=== PATIENT | female | born 1965 | race African-American/Black ===

== ENCOUNTER 2017-04-14 13:49 | Emergency (ER) | payer SELFPAY ==
--- NOTE | 2017-04-14 13:54 | ED Physician Documentation ---
General Adult - HISTORIAN Historian: patient <Monique Paiz - Last Filed: 04/14/17 13:54> - HPI Chief Complaint: Lower Extremity Problem Onset: other (has had chronic problems for years) Timing: worse Severity: moderate Further Comments: yes - ROS CONST: denies: fever, chills - PAST HX Past History: hypertension, other (? RA, migraine headaches, chronic OA, disc disease to lumbar, torn rotator cuff, ) Immunizations: referred to PCP - SOCIAL HX Smoking History: less than 1 pack/day (1/2 ppd) Alcohol Use: occasionally Drug Use: none - FAMILY HX Family History: No - VITAL SIGNS Vital Signs: Vital Signs Temp Pulse Resp BP Pulse Ox 98.1 F 91 H 20 134/88 99 04/14/17 13:50 04/14/17 13:50 04/14/17 13:50 04/14/17 13:50 04/14/17 13:50 - REVIEWED ASSESSMENTS Nursing Assessment Reviewed: Yes Vitals Reviewed: Yes <Chidi Landers - Last Filed: 04/14/17 16:42> - PAST HX Allergies/Adverse Reactions: Allergies Allergy/AdvReac Type Severity Reaction Status Date / Time No Known Allergies Allergy Verified 04/14/17 14:24 Home Medications: Ambulatory Orders Medication Instructions Recorded Cyclobenzaprine HCl 10 mg PO TID PRN 04/14/17 DULoxetine HCL [Cymbalta] 60 mg PO HS #30 capsule. 04/14/17 Diclofenac Sodium [Solaraze] 2 gm TP TID PRN 04/14/17 Duloxetine HCl [Cymbalta] 60 mg PO D 04/14/17 Gabapentin 300 mg PO TID #90 capsule 04/14/17 Gabapentin [Neurontin] 300 mg PO TID 04/14/17 HYDROcodone /APAP 10325 [[place] 1 each PO BID PRN 04/14/17 10325] Meloxicam [Mobic] 15 mg PO D 04/14/17 Naproxen [Naprosyn] 500 mg PO BID PRN #30 tablet 04/14/17 Sumatriptan Succinate [Imitrex] 100 mg PO DIRECTED PRN 04/14/17 Tramadol HCl [Ultram] 50 mg PO Q6 PRN 04/14/17 Tramadol HCl [Ultram] 50 mg PO Q6 PRN #20 tablet 04/14/17 amLODIPine BESYLATE [Norvasc] 10 mg PO 0900 04/14/17 amLODIPine BESYLATE [Norvasc] 10 mg PO 0900 #60 tablet 04/14/17 Progress - EKG/XRAY/CT XRAY: knee <Chidi Landers - Last Filed: 04/14/17 16:42> ED Results Lab/Radiology - Radiology Radiology Impressions: Examination: Plain film knee History: Knee discomfort Findings: 3 views of the knee demonstrates normal cortical margins. No fracture. No dislocation. Small joint effusion. No soft tissue irregularity. Impression: Small joint effusion. No acute osseous abnormality. - Orders Orders: ED Orders Category Date Time Status KNEE 3 VIEWS [RAD] Stat Exams 04/14/17 Taken <Chidi Landers - Last Filed: 04/14/17 16:42> General Adult Physical Exam - PHYSICAL EXAM GENERAL APPEARANCE: mild distress NECK: thyroid normal, supple RESPIRATORY: no resp distress, chest non-tender, breath sounds normal. No: wheezes, rales, rhonchi CVS: reg rate & rhythm, heart sounds normal, equal pulses ABDOMEN: soft, no organomegaly, normal bowel sounds, no abdominal bruit, no distension BACK: other (mild low lumbar tenderness) EXTREMITIES: other (tenderness to the lateral anterior aspect fo the right knee. mild joint effusion, mild crepitus with movement. No warmth noted. ) NEURO: oriented X3, CN's nml as tested, motor nml, sensation nml, mood/affect nml <Chidi Landers - Last Filed: 04/14/17 16:42> Discharge <Monique Paiz - Last Filed: 04/14/17 13:54> Decision to Admit: NO Date of Decison to Admit: 04/14/17 Decision Time: 16:02 <Chidi Landers - Last Filed: 04/14/17 16:42> Clincal Impression: Osteoarthritis of right knee Referrals: Primary Doctor,No [Primary Care Provider] - 2 Days Additional Instructions: Take Naprosyn 500mg with food twice a day. Take Tramadol 50mg one tablet with food as needed for severe pain. Use a warm compress to the knee area. Follow-up with a primary care provider for further evaluation and workup of your medical problems. Condition: Stable Disposition: 01 HOME, SELF-CARE
[2017-04-14] MEDS ORDERED: KETOROLAC TROMETHAMINE 60 MG/2 ML VIAL IM ONE (15:10)
--- NOTE | 2017-04-14 15:51 | Diagnostic Imaging Report ---
KATHRYN JAMISON [facility] [address] [facility] [address] [address] Report Submission Date: Apr 14, 2017 2:49:34 PM CDT Patient Study Name: MONICA CHAMPION Date: Apr 14, 2017 2:36:19 PM CDT Modality Type: CR Gender: F Description: LOWER EXTREMITY : 61 Institution: [facility] Physician: KATHRYN JAMISON Examination: Plain film knee History: Knee discomfort Findings: 3 views of the knee demonstrates normal cortical margins. No fracture. No dislocation. Small joint effusion. No soft tissue irregularity. Impression: Small joint effusion. No acute osseous abnormality. Electronically signed on Apr 14, 2017 2:49:34 PM CDT by: Chip MONTERO
[2017-04-14 16:01] LABS: MEAN CORPUSCULAR HEMOGLOBIN 29.7 pg (28.0-34.0); MEAN CORPUSCULAR VOLUME 93.9 fl (80.0-100.0)
[2017-04-14 16:02] LABS: EOSINOPHILS % 1.7 % (0.0-6.8); MONOCYTES % 4.5 % (0.0-11.0)
[2017-04-14 16:03] LABS: BASOPHILS % 0.6 (0.0-1.5); NEUTROPHILS # 3.1 # k/uL (1.4-7.7)
[2017-04-14 16:06] LABS: eGFR (African) > 60; eGFR (Non-African) > 60
[2017-04-14 16:25] VITALS: BP 139/76
== END 2017-04-14 16:45 | disposition home or self-care (01) ==
LOC: ED 13:49
DX: M17.11 Unilateral primary osteoarthritis, right knee (principal)
CPT/HCPCS: 73562; 80053; 85025; J1885; 96372; 99283

== ENCOUNTER 2017-06-09 16:28 | Emergency (ER) | payer SELFPAY ==
--- NOTE | 2017-06-09 16:50 | ED Physician Documentation ---
Sore Throat/Dental Pain - HISTORIAN Historian: patient - HPI Chief Complaint: Sore Throat Additional Information: [address], has been around other people that have been ill.No fever noted, haivng some mild chills. No cough or nasal drainage noted. Onset: days ago (2 days) Associated Symptoms: sore throat. denies: fever, chills Further Comments: no - ROS CONST: no problems - PAST HX Past History: other (HTN ,OA) Other History: other (depression) Allergies/Adverse Reactions: Allergies Allergy/AdvReac Type Severity Reaction Status Date / Time No Known Allergies Allergy Verified 06/09/17 16:51 Home Medications: Ambulatory Orders Medication Instructions Recorded Cyclobenzaprine HCl 10 mg PO TID PRN 04/14/17 DULoxetine HCL [Cymbalta] 60 mg PO HS #30 capsule. 04/14/17 Diclofenac Sodium [Solaraze] 2 gm TP TID PRN 04/14/17 Duloxetine HCl [Cymbalta] 60 mg PO D 04/14/17 Gabapentin 300 mg PO TID #90 capsule 04/14/17 Gabapentin [Neurontin] 300 mg PO TID 04/14/17 HYDROcodone /APAP 10325 [[place] 1 each PO BID PRN 04/14/17 10325] Meloxicam [Mobic] 15 mg PO D 04/14/17 Naproxen [Naprosyn] 500 mg PO BID PRN #30 tablet 04/14/17 Sumatriptan Succinate [Imitrex] 100 mg PO DIRECTED PRN 04/14/17 Tramadol HCl [Ultram] 50 mg PO Q6 PRN 04/14/17 Tramadol HCl [Ultram] 50 mg PO Q6 PRN #20 tablet 04/14/17 amLODIPine BESYLATE [Norvasc] 10 mg PO 0900 04/14/17 amLODIPine BESYLATE [Norvasc] 10 mg PO 0900 #60 tablet 04/14/17 - SOCIAL HX Smoking History: less than 1 pack/day (1/2 ppd) Alcohol Use: rarely Drug Use: none - FAMILY HX Family History: No - VITAL SIGNS Vital Signs: Vital Signs Temp Pulse Resp BP Pulse Ox 98.4 F 94 H 20 145/88 98 06/09/17 16:28 06/09/17 16:28 06/09/17 16:28 06/09/17 16:28 06/09/17 16:28 - REVIEWED ASSESSMENTS Nursing Assessment Reviewed: Yes Vitals Reviewed: Yes Sore throat Physical Exam - EXAM General Appearance: alert, mild distress Head/Neck: head nml inspection, trachea midline, no lymphadenopathy, thyroid nml Eyes: eyes nml inspection Mouth/Throat: lips nml, gums nml, voice nml, no drooling, no air way problems, pharyngeal erythema. No: tonsillar exudate Ear/Nose: nml inspection Respiratory: no resp. distress, breath sounds nml. No: respiratory distress, wheezes, rales, rhonchi CVS: reg. rate & rhythm, heart sounds nml Abdomen: soft, no organomegaly, normal bowel sounds Skin: warm/dry, other (no rash) Neuro/Psych: oriented x3, mood/affect nml Discharge Clincal Impression: Viral pharyngitis Referrals: Primary Doctor,No [Primary Care Provider] - 2 Days Additional Instructions: Gargle with salt water, use hard rock candy, chloraspetic spray or ice chips to help soothe throat, drink a lot of fluids. Condition: Stable Disposition: 01 HOME, SELF-CARE Decision to Admit: NO Date of Decison to Admit: 06/09/17 Decision Time: 16:58
[2017-06-09 16:51] VITALS: BP 145/88
== END 2017-06-09 17:04 | disposition home or self-care (01) ==
LOC: ED 16:28
DX: J02.9 Acute pharyngitis, unspecified (principal)
CPT/HCPCS: 87070; 87880; 99283

== ENCOUNTER 2017-09-04 13:52 | Outpatient (CLI) | payer OTHER ==
--- NOTE | 2017-09-09 14:21 | CONSULTATION REPORT ---
REFERRING PHYSICIAN: Dr. Chidi Landers CONSULTING PHYSICIAN: Tony Arzate MD Dear Dr. Landers: HISTORY OF PRESENT ILLNESS: Thank you for your consultation request regarding Kristi Smith. This is a 52- year-old black woman who is complaining of bilateral knee and hand pain and there is a concern for possible rheumatoid arthritis. She tells me her brother has rheumatoid arthritis. Her pain has been present for many years but her hands are rather a new development. For the past couple of months, she has had a gradual onset of painful stiffness and swelling of the hands, as well as discomfort and swelling of her right knee. Prior to this, she was seen at [facility] of Orth[facility] and had a diagnosis of primary osteoarthritis of the knees bilaterally, as well as osteoarthritis of her spine with radicular symptoms. She got injections in both her knees and her lumbar spine. From her records, I see that the last MRI of the lumbar spine was in 2016, as well as x-rays of her hips. She does have joint pain, swelling, and morning stiffness lasting over an hour. ALLERGIES: She has no known drug allergies. PRESENT MEDICATIONS: 1. Amlodipine 10 mg daily. 2. Flexeril 10 mg daily. 3. Cymbalta 60 mg daily. 4. Gabapentin 300 mg. 5. Hydrocodone. 6. Meloxicam. 7. Tramadol. PAST MEDICAL HISTORY: Hypertension. REVIEW OF SYSTEMS: Rest of systems reviewed, no change in her weight. No fatigue, weakness, or fevers. No red painful eyes. No dry mouth or difficulty swallowing. No chest pain, shortness of breath, cough, or wheezing. No nausea, vomiting, or diarrhea. No dark stools or bloody stools. She does have heartburn. No skin rashes, hives, photosensitivity, color changes in her hands and feet in the cold. She does have headaches and hands sensitivity. Some issues with depression. No swollen or tender lymph nodes. PHYSICAL EXAMINATION: Vital Signs: She is 5 feet 10 inches. Weight: 187 pounds. T: 96.8, R: 20, heart rate 87, BP: 139/78. HEENT: Sclerae are anicteric. Conjunctivae are pink. No stomatitis or glossitis. LUNGS: Clear bilaterally with no crackles or wheezing. HEART: Regular rhythm. ABDOMEN: Soft and nontender. VASCULAR: No edema or cyanosis. PERIPHERAL JOINTS: Tenderness but no overt synovitis at the PIPs and MCPs. No deformities. Wrists are unremarkable. Elbows and shoulders are unremarkable. Both knees are tender. The right knee has a small cool effusion with a mild flexion deformity. There is no instability. Ankles and MTPs are unremarkable. SENSORY EXAM: Decreased gross sensation of the lower feet. IMPRESSION: Concern for rheumatoid arthritis. PLAN: 1. You had ordered some labs and she has not done them as of yet. I will be doing those this coming week. 2. I will also x-ray her hands, wrists, and knees, as well as her feet. Thank you very much for the opportunity to participate in the care of your patients. Best regards, cc: Dr. Chidi MONTERO
== END 2017-09-04 14:00 ==
LOC: RHEU 13:52
PROVIDERS: ATTEND Internal Medicine
DX: M79.641 Pain in right hand (principal); M25.562 Pain in left knee; M25.561 Pain in right knee
CPT/HCPCS: 99213; 99214

== ENCOUNTER 2017-09-08 12:44 | Outpatient (CLI) | payer OTHER ==
[2017-09-08 15:02] LABS: BASOPHILS % 0.5 (0.0-1.5); EOSINOPHILS % 1.7 % (0.0-6.8); MEAN CORPUSCULAR HEMOGLOBIN 30.7 pg (28.0-34.0); MEAN CORPUSCULAR VOLUME 94.3 fl (80.0-100.0); MONOCYTES % 3.5 % (0.0-11.0); NEUTROPHILS # 3.7 # k/uL (1.4-7.7)
[2017-09-08 15:08] LABS: eGFR (African) > 60; eGFR (Non-African) > 60
--- NOTE | 2017-09-11 11:15 | HISTORY AND PHYSICAL REPORT ---
REFERRING PHYSICIAN: Dr. Chidi Landers Dear Dr. Landers: HISTORY OF PRESENT ILLNESS: I had the opportunity of seeing Kristi Smith today as an outpatient at [facility]. As you are aware, Kristi is a very nice 52-year-old female who presents today with multiple complaints of primarily joint pain, severe pain bilaterally in her hands and feet, tingling and numbness in her feet, low back pain, and knee pain. Of her multiple complaints, the knee pain appears to be most disabling, as she cannot walk. She cannot bend or flex her knees because of pain. She was seen by Dr. rAzate who felt that she may in fact have rheumatoid arthritis and lab work was ordered but not obtained. She had been previously seen at [facility] and they have given her multiple injections, including epidurals , shoulder joint injections, a shoulder arthroscopy, knee joint injections, and she is not sure if she has had much improvement with any form of injection therapy. As I look at her today, she is markedly uncomfortable. She has been taking very little in the way of oral analgesics and has had some type of delay in getting her insurance benefits for her usual medical management, which includes tramadol and hydrocodone. PAST MEDICAL HISTORY: 1. History of hypertension. 2. Bruising easily. 3. Depression. 4. Frequent headaches. 5. Chronic pain of multiple joints. PAST SURGICAL HISTORY: 1. Left rotator cuff repair. 2. Bilateral tubal ligation. 3. Hernia repair. CURRENT DAILY MEDICATIONS: 1. Sumatriptan 100 mg p.r.n. 2. Duloxetine 60 mg daily. 3. Amlodipine 10 mg daily. 4. Naproxen 500 mg p.r.n. 5. Calcium with D3, 800/600 daily. ALLERGIES: She has no known drug allergies. SOCIAL HISTORY: She is currently a [id number]-day smoker. Unknown alcohol use. Denies recreational drug use. Unknown marital status. She has 1 child. Her previous occupation was in Marketing. She is not currently employed. She is currently disabled for unknown reason. FAMILY HISTORY: Father with heart disease and diabetes. Pain problems related to arthritis. Brother with RA. REVIEW OF SYSTEMS: In the last month or so, she reports a hoarse voice, stomach pain or upset stomach, feeling depressed, feeling anxious, and headaches. Pain is worsened with lying, standing, bending, sitting, walking, twisting, getting up from a chair, changes in weather, cold, heat, stress, fatigue, driving, touch, and in any position for too long. Nothing improves her pain. PHYSICAL EXAMINATION: General: This is a thin female appearing in some distress. Vital Signs: BP: 154/80, P: 74, R: 22, oxygen saturation is 98% on room air. Extremities: There is minimal range in the upper and lower extremities both at the shoulder and completely at the knees. There is tenderness to hogshead hooper strength, particularly in the right hand, as opposed to the left. There is no evidence of dermatomal numbness or weakness in the upper extremities or lower extremities. There is a negative straight leg raise. There is swelling in both knees and a great deal of pain with flexion and extension. There is negative drawer signs. There is a positive assisted extension and extension rotation. Positive ALEJANDRA. Positive bursitis of the hips, low back, and shoulders. ASSESSMENT: 1. Polyarthropathy. 2. Polymyalgia. 3. Bilateral knee joint swelling and pain. 4. Possible spinal stenosis. PLAN: At this point, I am going to provide her with a prescription for Butrans 10 mcg patch 1 or 2 patches applied to the skin every 7 days and I will plan on placing bilateral knee joint injections. I would like to get the lab work drawn today that was ordered by Dr. Arazte so that she can get a sufficient rheumatologic workup, as I believe this nice lady likely does have an autoimmune disorder. Dr. Landers, thank you very much for allowing me to take part in the care of this nice lady. I appreciate the opportunity to take part in the care of your patients. cc: Dr. Chidi MONTERO
--- NOTE | 2017-10-01 15:53 | KNEE INJECTION WITH FLUORO ---
PREOPERATIVE DIAGNOSES: 1. Bilateral degenerative joint disease of the knees. 2. History of osteoarthritis of the knees. POSTOPERATIVE DIAGNOSES: 1. Bilateral degenerative joint disease of the knees. 2. History of osteoarthritis of the knees. PROCEDURE: Bilateral knee joint injection under fluoroscopy. DESCRIPTION OF PROCEDURE: Consent was obtained after risks were fully explained including bleeding, infection, and lack of improvement. The patient was positioned supine on the fluoroscopic procedure table with the knees slightly flexed. The right knee was prepared. AP and oblique fluoroscopic viewing was used for visualizing the knee joint. A spinal needle was advanced under fluoroscopic guidance into the right knee at the medial compartment. Omnipaque was injected and revealed an adequate spread within the right knee joint. Following this, the medication was subsequently injected. At this point, the needle was removed and a sterile dressing was applied. In this exact same fashion, the contralateral knee was then injected under fluoroscopic guidance. The patient tolerated the injections without complications. The patient was monitored for 20 minutes following the procedure. ASSESSMENT: 1. Bilateral degenerative joint disease of the knees. 2. History of osteoarthritis of the knees. PLAN: Bilateral knee joint injection under fluoroscopy. FOLLOW UP: Return to clinic if problems develop or worsen. KYLAH
== END 2017-09-08 12:45 ==
LOC: OUT 12:44
PROVIDERS: ATTEND Anesthesiology Pain Medicine
DX: M17.0 Bilateral primary osteoarthritis of knee (principal); M13.0 Polyarthritis, unspecified; M35.3 Polymyalgia rheumatica; I10 Essential (primary) hypertension; F17.210 Nicotine dependence, cigarettes, uncomplicated; Z79.899 Other long term (current) drug therapy
CPT/HCPCS: 20610; 36415; 80053; 84550; 85025; 85651; 86038; 86140; 86200; 86431; 99214; J3301; J3490; Q9966

== ENCOUNTER 2017-09-30 10:53 | Outpatient (CLI) | payer OTHER ==
--- NOTE | 2017-09-30 20:21 | Diagnostic Imaging Report ---
THIAGO MERA~ [facility] [address] [address] ~ ~ ~ ~ Report Submission Date: Sep 30, 2017 12:23:07 PM CDT Patient ~ Study Name: MONICA CHAMPION ~ Date: Sep 30, 2017 11:20:01 AM CDT ~ Modality Type: DX Gender: F ~ Description: UPPER EXTREMITY : 61 ~ Institution: [facility] Physician: THIAGO MERA ~ ~ ~ Examination: Plain film hands bilaterally History: PT COMPLAINS OF PAIN IN THE HANDS X 1 YEAR (Hx) Comparison exams: None available Findings: 3 views the right and left hands demonstrates generalized osteopenia. Articular degenerative changes. No fracture.~ No dislocation. No soft tissue abnormality. Impression: Osteopenia and degenerative changes. No acute osseous abnormality. ~ Electronically signed on Sep 30, 2017 12:23:07 PM CDT by: Chip MONTERO
--- NOTE | 2017-09-30 20:23 | Diagnostic Imaging Report ---
THIAGO MERA~ [facility] [address] [facility] [address] ~ ~ ~ ~ Report Submission Date: Sep 30, 2017 12:30:21 PM CDT Patient ~ Study Name: MONICA CHAMPION ~ Date: Sep 30, 2017 11:31:32 AM CDT ~ Modality Type: DX Gender: F ~ Description: LOWER EXTREMITY : 61 ~ Institution: [facility] Physician: THIAGO MERA ~ ~ ~ Examination: Plain film knees bilaterally History: PT COMPLAINS OF KNEE PAIN X 2 YEARS. (Hx) Findings:~2 views of the left and right knees demonstrates generalized osteopenia. Minimal tibial spine and patellar spurring. No fracture.~ No dislocation. No joint effusion. No soft tissue irregularity. Impression: Osteopenia and mild degenerative changes. No acute appearing osseous abnormality. ~ Electronically signed on Sep 30, 2017 12:30:21 PM CDT by: Chip MONTERO
--- NOTE | 2017-09-30 20:25 | Diagnostic Imaging Report ---
THIAGO MERA~ [facility] [address] [address] ~ ~ ~ ~ Report Submission Date: Sep 30, 2017 12:24:22 PM CDT Patient ~ Study Name: MONICA CHAMPION ~ Date: Sep 30, 2017 11:37:16 AM CDT ~ Modality Type: DX Gender: F ~ Description: LOWER EXTREMITY : 61 ~ Institution: [facility] Physician: THIAGO MERA ~ ~ ~ Examination: Plain film feet bilaterally History: PT COMPLAINS OF PAIN IN THE HANDS X 1 YEAR (Hx) Comparison exams: None available Findings: 3 views the right and left feet demonstrates generalized osteopenia. Articular degenerative changes. No fracture. ~No dislocation. Inferior calcaneal spurs. No soft tissue abnormality. Impression: Osteopenia and degenerative changes. No acute osseous abnormality. ~ Electronically signed on Sep 30, 2017 12:24:22 PM CDT by: Chip Moy History should read: PT COMPLAINS OF BILATERAL FOOT PAIN AND NUMBNESS X 1 YEAR. (Hx) Addendum electronically signed by Chip Moy on September 30, 2017 12:28:53 PM CDT MTDD
== END 2017-09-30 10:55 ==
LOC: RAD 10:53
PROVIDERS: ATTEND Internal Medicine
DX: M13.0 Polyarthritis, unspecified (principal); Z79.899 Other long term (current) drug therapy

== ENCOUNTER 2017-10-06 10:24 | Outpatient (CLI) | payer OTHER ==
--- NOTE | 2017-10-08 10:30 | PAIN CLINIC PROGRESS NOTES ---
REASON FOR VISIT: Ms. Smith follows up today. She said she had temporary benefit from the knee joint injections and that the pain is returning in the knees, her chief complaint, hands, wrists, and shoulders. She says she hurts all over. She went to see Dr. Arzate and had lab work and x-ray images were obtained. The significant lab results are positive for rheumatoid factor. Otherwise, there is osteopenia in the hands and feet and degenerative changes in the joints in each limb. ASSESSMENT: 1. Degenerative joint disease. 2. Polyarthropathy. 3. Polymyositis. 4. Possible rheumatoid arthritis. PLAN: At this point, I am going to restart Kristi on gabapentin 300 mg 3 times a day and provide her with Butrans 10 mcg to 20 mcg transdermal patches. I will have her see Dr. Arzate and he is scheduled to see her later this week. From an interventional standpoint, I think this patient would likely benefit from a more of a rheumatological approach than an interventional pain approach. cc: Dr. Chidi MONTERO
== END 2017-10-06 10:26 ==
LOC: OUT 10:24
PROVIDERS: ATTEND Anesthesiology Pain Medicine
DX: M19.90 Unspecified osteoarthritis, unspecified site (principal); M13.0 Polyarthritis, unspecified; M33.20 Polymyositis, organ involvement unspecified
CPT/HCPCS: 99213; 99214

== ENCOUNTER 2017-10-09 | Outpatient (CLI) | payer OTHER ==
--- NOTE | 2017-10-12 14:38 | OP Clinic Progress Note ---
Dear Dr. Landers and Dr. Ruiz: REASON FOR VISIT: I had the pleasure of seeing Kristi Smith on follow up. She continues to have significant pain in her neck, back, shoulder, hands, and her feet. She has not noted any new deformities. No other modalities are helping. She presently brings me a new medication list and PAST MEDICAL HISTORY: Hypertension. ALLERGIES: She has no drug allergies. PRESENT MEDICATIONS: 1. Imitrex. 2. Cymbalta. 3. Naprosyn. 4. Gabapentin. 5. Butrans. 6. Amlodipine. REVIEW OF SYSTEMS: She is still in pain. She is not sleeping well. She has difficulty with all activities of daily living including walking, grasping, and dressing, otherwise , no fevers, chills, sweats, chest pain, shortness of breath, cough, or wheezing. PHYSICAL EXAMINATION: VITAL SIGNS: Height: 5 feet 10 inches. Weight: 186. T: 96.6, R: 20, heart rate 80, BP: 126/71. HEENT: Sclerae are anicteric. Conjunctivae are pink. No stomatitis or glossitis. LUNGS: Clear bilaterally with no crackles or wheezing. HEART: Regular rate and rhythm. ABDOMEN: Soft and nontender. VASCULAR: No edema or cyanosis. PERIPHERAL JOINTS: Tenderness at the PIPs, MCPs, and wrists with decreased director digital advertising strength. Extremely tender at the shoulders with decreased range of motion. Both knees feel puffy but no definite effusion. Ankles and feet are tender. LABORATORIES: Her rheumatoid factor is positive at 92. Her sedimentation rate was 20. CRP was normal. CBC and CMP were normal. RADIOLOGY: I personally reviewed the x-rays of her knees, hands, and feet. The knees show some tibial spurring. Joint space is fairly well maintained, maybe a little narrowing on the right. X-rays of her hands, wrists, and feet did not show any erosions, just some periarticular osteopenia. IMPRESSION: Seropositive rheumatoid arthritis of multiple sites. PLAN: 1. I am stopping the patient's Naprosyn. 2. I am putting her on prednisone 10 mg twice a day. 3. I am instituting methotrexate 3 tablets weekly with folic acid supplementation. 4. As she improves, I hope to be able to wean her off Cymbalta, gabapentin, and Butrans. Thank you very much for the opportunity to take part in the care of your patient. Best regards, cc: Dr. Chidi MONTERO
== END 2017-10-09 14:52 ==
DX: M06.89 Other specified rheumatoid arthritis, multiple sites (principal)
CPT/HCPCS: 99213; 99214

== ENCOUNTER 2018-01-08 11:09 | Outpatient (CLI) | payer OTHER ==
--- NOTE | 2018-01-11 13:04 | OP Clinic Progress Note ---
REASON FOR VISIT: Kristi Smith returns for follow up. This is a lady I last saw on October 09, 2017, and I instituted methotrexate and she was supposed to come back 4 weeks later and failed to do so. She continues to have significant pain in her neck and her back, as well as hands and feet. She cannot sleep. Morning stiffness is over an hour. She has difficulty grasping and all of her activities. PAST MEDICAL HISTORY: Hypertension. ALLERGIES: She has no known drug allergies. PRESENT MEDICATIONS: 1. Imitrex. 2. Cymbalta. 3. Gabapentin. 4. Butrans. 5. Amlodipine. 6. Methotrexate 3 tablets once a week. 7. Folic acid supplementation. She did not tolerate prednisone and had no response. REVIEW OF SYSTEMS: As above. Otherwise, no fevers, chills, or sweats. She has, however, been diagnosed with COPD but started after I instituted methotrexate and she is presently on multiple inhalers. She continues to have a cough, nonproductive, but otherwise, no chest pain. No nausea, vomiting, or diarrhea. PHYSICAL EXAMINATION: VITAL SIGNS: Height: 5 feet 10 inches. Weight: 198 pounds. T: 97.5, R: 20. Heart rate 98, BP: 150/80. HEENT: Sclerae are anicteric. Conjunctivae are pink. No stomatitis or glossitis. LUNGS: Clear with no wheezing. HEART: Regular rate and rhythm. ABDOMEN: Soft and nontender. VASCULAR: No edema or cyanosis. PERIPHERAL JOINTS: PIPs, MCPs, and wrists are tender with fullness. No overt effusion. Elbows and shoulders are tender. Knees, ankles, and feet are tender, otherwise, unremarkable. DIAGNOSTIC STUDIES: Review of her chart, on October 05, she had an MRI of her lumbar spine, which is noted. IMPRESSION: 1. Seropositive rheumatoid arthritis. 2. New diagnosis of chronic obstructive pulmonary disease (COPD) is a concern in a patient who was just started on methotrexate. I always worry about methotrexate lung toxicity. 3. No response to prednisone. PLAN: 1. I am stopping her methotrexate. 2. I am putting her on Medrol 4 mg 3 times a day. 3. We are updating her labs today and will contemplate the use of Arava. 4. I am going to see her back in 4 weeks. Thank you very much. cc: Dr. Gokul Landers [facility]
== END 2018-01-08 12:28 ==
LOC: RHEU 11:09
PROVIDERS: ATTEND Internal Medicine
DX: M05.9 Rheumatoid arthritis with rheumatoid factor, unspecified (principal); J44.9 Chronic obstructive pulmonary disease, unspecified
CPT/HCPCS: 99213; 99214

== ENCOUNTER 2018-02-05 11:10 | Outpatient (CLI) | payer OTHER ==
--- NOTE | 2018-02-05 12:17 | OP Clinic Progress Note ---
REASON FOR VISIT: Kristi Smith returns for follow up on seropositive rheumatoid arthritis of multiple sites. She is coming in today with pain in her hands, knees, neck and back. She has several hours of morning stiffness. It is unclear from the patient whether she has been taking the Medrol 4 mg 3 times a day that I prescribed her. She tells me she ran out of it 2 weeks ago. I had stopped her methotrexate for lack of response. She wants something for her pain. PAST MEDICAL HISTORY: Hypertension. ALLERGIES: She has no known drug allergies. PRESENT MEDICATIONS: 1. Imitrex. 2. Cymbalta. 3. Gabapentin. 4. Butrans. 5. Amlodipine. 6. Question whether she is taking her Medrol. REVIEW OF SYSTEMS: As above. Otherwise, no fevers, chills, sweats, chest pain, shortness of breath, cough, wheezing, nausea, vomiting, or diarrhea. PHYSICAL EXAMINATION: VITAL SIGNS: Height: 5 feet 10 inches. Weight: 204 pounds. T: 98, R: 20, heart rate 98, BP: 140/80. HEENT: Sclerae are anicteric. Conjunctivae are pink. No stomatitis or glossitis. LUNGS: Clear. HEART: Regular rate and rhythm. ABDOMEN: Soft. SKIN: Exam is unremarkable. JOINTS: Tenderness at the PIPs, MCPs, and wrists. She has an effusion in the right knee. Elbows and shoulders are tender. MTPs are tender. LABORATORY: She brings in some labs from December 28 which were reviewed in the chart. CBC and CMP were within normal limits. IMPRESSION: Seropositive rheumatoid arthritis. PLAN: 1. I again prescribed Medrol 4 mg 3 times a day. I discussed at length the risks and benefits and how to take it. 2. I am instituting Arava 20 mg daily as a disease-modifying agent. 3. As far as her back pain, I have asked her to see Dr. Ruiz. 4. I will see her back in 4 weeks. cc: Dr. Chidi MONTERO
== END 2018-02-05 11:12 ==
LOC: RHEU 11:10
PROVIDERS: ATTEND Internal Medicine
DX: M05.9 Rheumatoid arthritis with rheumatoid factor, unspecified (principal)
CPT/HCPCS: 99213; 99214

== ENCOUNTER 2018-03-12 10:31 | Outpatient (CLI) | payer OTHER ==
--- NOTE | 2018-03-12 13:54 | OP Clinic Progress Note ---
Dear Dr. Landers: REASON FOR VISIT: I had the pleasure of seeing Kristi Smith on follow up of seropositive rheumatoid arthritis. She is doing significantly better than 4 weeks ago. Morning stiffness is now 15 minutes and her pain is maybe 4 to 5 over 10. She has had improved function overall. She is complaining that she is putting on weight while on steroids. PAST MEDICAL HISTORY: 1. Seropositive rheumatoid arthritis. 2. Hypertension. 3. Chronic back pain. ALLERGIES: No known drug allergies. PRESENT MEDICATIONS: 1. Medrol 4 mg 3 times a day. 2. Arava 20 mg daily. 3. Imitrex. 4. Cymbalta. 5. Gabapentin. 6. Butrans. 7. Amlodipine. REVIEW OF SYSTEMS: No fevers, chills, sweats, chest pain, shortness of breath, cough, wheezing, nausea, vomiting, or diarrhea. No skin rashes. No numbness or tingling of her extremities. She has an appointment with Dr. Ruiz in a few weeks. Otherwise, review of systems is positive for weight gain. PHYSICAL EXAMINATION: VITAL SIGNS: Height: 5 feet 10 inches. Weight: 213 pounds. T: 97.2, R: 20, Heart rate 100, BP: 147/87. HEENT: Sclerae are anicteric. Conjunctivae are pink. No stomatitis or glossitis. LUNGS: Clear. HEART: Regular rate and rhythm. ABDOMEN: Soft. VASCULAR: No edema or cyanosis. PERIPHERAL JOINTS: No synovitis at the DIPs, PIPs, MCPs, wrists, elbows, shoulders, hips, knees, ankles, and feet. Although, she does have some residual tenderness of the MTPs and wrists. IMPRESSION: Seropositive rheumatoid arthritis, improved. PLAN: 1. I am decreasing the Medrol to 4 mg twice a day. She has been given instructions on how to taper her Medrol, depending on how she feels. 2. I will check her labs for disease activity and drug toxicity today. 3. Continue leflunomide or Arava 20 mg daily. 4. I will see her back in 3 months. Thank you very much. cc: Dr. Chidi Ruiz [facility]ALS[facility]
== END 2018-03-12 10:33 ==
LOC: RHEU 10:31
PROVIDERS: ATTEND Internal Medicine
DX: M05.9 Rheumatoid arthritis with rheumatoid factor, unspecified (principal)
CPT/HCPCS: 99213; 99214

== ENCOUNTER 2018-04-20 10:54 | Outpatient (CLI) | payer OTHER ==
[~2018-04-20 10:54] MED LIST: LIDOCAINE HCL/PF 2% 100 MG/5 ML VIAL IJ ONE; TRIAMCINOLONE ACETONID 40MG/ML VIAL ONE
--- NOTE | 2018-04-21 12:23 | KNEE INJECTION WITH FLUORO ---
SUBJECTIVE: Ms. Smith follows up with me today with return of knee pain. She has been somewhat frustrated with her rheumatoid arthritis treatment. She has had some shortness of breath and side effects from a medication. In the meantime, her knee pain has returned and she is here for bilateral knee joint injections. She is also complaining of a new onset of back pain. With further questioning, it is not actually new. She has had this previously and had an epidural steroid injection which was ineffective. I examined her and she has positive assisted extension and extension rotation findings consistent with facet pain at both the thoracic and lumbar spine consistent with facet spondylosis and rheumatoid arthritis. We discussed her knees and her back pain today; and at this point, we will place bilateral knee joint injections. We will follow her up for diagnostic lumbar facet medial branch blocks with sedation or monitored anesthesia care, as she is anxious about the amount of discomfort that occurred with her last spinal treatment. Plan today for bilateral knee joint injections under fluoroscopic guidance. PROCEDURE: Bilateral knee joint injection with fluoroscopy. DESCRIPTION OF PROCEDURE: The risks and benefits of the injection were discussed with the patient, including the risks of infection, bleeding, and nerve injury. Furthermore, I discussed the risk of steroid exposure causing hyperglycemia, hypertension, osteoporosis, or increased infectious risks. The patient understood these risks and agreed to proceed. Consent was obtained. The patient was placed in the supine position on the fluoroscopy table with the knees slightly flexed. The left knee was prepared. AP and oblique fluoroscopic viewing was used for visualizing the knee joint. A spinal needle was introduced into the joint space from an anteromedial approach under direct fluoroscopic guidance. It was verified that there was no aspiration of fluid or blood. The medication was injected. The stylette was replaced into the needle and the needle was withdrawn from the knee. The skin was cleaned. This exact same procedure was repeated at the contralateral knee. The patient tolerated the injection without complications. A band-aid was placed over the injection site (s). The patient was monitored for 20 minutes following the procedure. Vital signs remained stable throughout this period. ASSESSMENT: 1. Rheumatoid arthritis. 2. Degenerative joint disease of the knees. PLAN: Bilateral knee joint injection with fluoroscopic guidance today. FOLLOW UP: Return to clinic if problems develop or worsen. KYLAH
== END 2018-04-20 10:56 ==
LOC: OUT 10:54
PROVIDERS: ATTEND Anesthesiology Pain Medicine
DX: M17.0 Bilateral primary osteoarthritis of knee (principal)
CPT/HCPCS: J2001; J3301; 20611; 99213